=== PATIENT | male | born 1970 | race African-American/Black ===

== ENCOUNTER 2018-02-17 17:23 | Emergency (ER) | payer MEDICARE ==
[~2018-02-17] VITALS: Ht 175.3 cm; Wt 86.2 kg
[~2018-02-17 17:23] MED LIST: ALPRAZOLAM0.5 MG PO; AMBIEN10 MG PO; MIRTAZAPINE45 MG PO
[2018-02-17 17:25] VITALS: BP 135/99
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
[2018-02-17 18:17] LABS: BASOPHILS % (AUTO) 1.6 % (0.0-2.0); EOSINOPHILS % (AUTO) 2.8 % (0.0-3.0); HEMATOCRIT 41.9 % (42.0-52.0); HEMOGLOBIN 14.7 G/DL (14.2-18.0); LYMPHOCYTES % (AUTO) 38.4 % (20.0-45.0); MEAN CORPUSCULAR VOLUME 90 FL (80-99); MONOCYTES % (AUTO) 8.2 % (1.0-10.0); NEUTROPHILS % (AUTO) 49.1 % (45.0-75.0); PLATELET COUNT 206 K/UL (150-450); RED BLOOD COUNT 4.67 M/UL (4.70-6.10); RED CELL DISTRIBUTION WIDTH 12.8 % (11.6-14.8); WHITE BLOOD COUNT 6.2 K/UL (4.8-10.8)
[2018-02-17 18:18] LABS: APPEARANCE,URINE CLEAR; BILIRUBIN, URINE NEGATIVE (NEGATIVE); GLUCOSE, URINE (UA) NEGATIVE (NEGATIVE); KETONES,URINE 1+ (NEGATIVE); LEUKOCYTE ESTERASE ,URINE 1+ (NEGATIVE); NITRITE,URINE NEGATIVE (NEGATIVE); PH,URINE 5 (4.5-8.0); PROTEIN,URINE NEGATIVE (NEGATIVE); UROBILINOGEN,URINE NORMAL MG/DL (0.0-1.0)
[2018-02-17 18:20] LABS: COLOR,URINE YELLOW
[2018-02-17 18:39] LABS: ANION GAP 5 mmol/L (5-15); BLOOD UREA NITROGEN 18 mg/dL (7-18); CALCIUM 9.4 MG/DL (8.5-10.1); CARBON DIOXIDE 26 MMOL/L (21-32); CHLORIDE 105 MMOL/L (98-107); POTASSIUM 4.7 MMOL/L (3.5-5.1); SODIUM 136 MMOL/L (136-145)
[2018-02-17 18:44] LABS: ALANINE AMINOTRANSFERASE 24 U/L (12-78); ALBUMIN 3.8 G/DL (3.4-5.0); ALBUMIN/GLOBULIN RATIO 0.9 (1.0-2.7); ALKALINE PHOSPHATASE 70 U/L (46-116); ASPARTATE AMINO TRANSFERASE 37 U/L (15-37); BILIRUBIN,TOTAL 0.3 MG/DL (0.2-1.0); CREATINE KINASE 217 U/L (26-308)
[2018-02-17 19:15] VITALS: BP 138/89
[2018-02-17 20:15] VITALS: BP 131/92
[2018-02-17 21:00] VITALS: BP 134/81
--- NOTE | 2018-02-17 21:07 | Diagnostic Imaging Report ---
EXAM: XR Chest, 1 View CLINICAL HISTORY: ALOC TECHNIQUE: Frontal view of the chest. COMPARISON: Chest radiograph dated 01/14/12. FINDINGS: Lungs: Unremarkable. No consolidation. Pleural space: Unremarkable. No pneumothorax. Heart: Unremarkable. No cardiomegaly. Mediastinum: Unremarkable. Bones/joints: Unremarkable. IMPRESSION: No interval change. No radiographic evidence of acute cardiopulmonary disease.
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
[2018-02-17 22:10] VITALS: BP 130/87
[2018-02-17 22:30] VITALS: BP 130/87
--- NOTE | 2018-02-20 19:10 | Cardiology Report ---
APPROVED REPORT EKG Measurement Heart [id number] Sinus tachycardia Possible Left atrial enlargement Borderline ECG
== END 2018-02-17 22:30 | disposition left against medical advice (07) ==
LOC: EDBD 17:23 → EMR 17:46
DX: R41.82 Altered mental status, unspecified (principal); F13.10 Sedative, hypnotic or anxiolytic abuse, uncomplicated; V89.2XXA Person injured in unspecified motor-vehicle accident, traffic, initial encounter; R00.0 Tachycardia, unspecified
CPT/HCPCS: 36415; 70450; 71045; 72125; 80053; 80307; 81003; 82550; 85025; 93005; 96360; 96361; 99284; G0480; 80329